=== PATIENT | male | born 1970 | race African-American/Black ===

== ENCOUNTER 2023-04-21 22:52 | Emergency (ER) | payer OTHER ==
[~2023-04-21] VITALS: Ht 167.6 cm; Wt 78.2 kg
[2023-04-21 23:02] VITALS: O2SAT 98
[2023-04-21] MEDS ORDERED: IBUPROFEN 600MG TABLET PO ONE (23:45)
[2023-04-22] MEDS ORDERED: IBUP-2029 MT (00:53)
[2023-04-22] MEDS ORDERED: IBUPROFEN 600MG TABLET PO NR (01:15)
[2023-04-22 01:16] VITALS: BP 162/101
[2023-04-22 01:18] VITALS: PULSE 91; RESP 17; TEMP 99.2
== END 2023-04-22 01:21 | disposition home or self-care (01) ==
LOC: ER 22:52
DX: S10.93XA Contusion of unspecified part of neck, initial encounter (principal); M25.511 Pain in right shoulder; W22.8XXA Striking against or struck by other objects, initial encounter; Y93.89 Activity, other specified; Y92.89 Other specified places as the place of occurrence of the external cause; Y99.8 Other external cause status
CPT/HCPCS: 71045; 99283